=== PATIENT | female | born 1990 | race Hispanic/Latino ===

== ENCOUNTER 2024-04-23 11:41 | Emergency (ER) | payer OTHER ==
[2024-04-23] MEDS ORDERED: NA CHLORIDE 0.9% 1,000 ML ONE (12:42)
[2024-04-23 13:03] LABS: Absolute Basophils 0.1 K/uL (0-0.5); Absolute Eosinophils 0.2 K/uL (0-0.5); Absolute Lymphocytes (CBC) 2.3 K/uL (0.7-4.9); Absolute Monocytes 0.3 K/uL (0.1-1.3); Absolute Neutrophil 5.2 K/uL (1.8-8.0); Basophils % 0.9 % (0-1.3); Eosinophils % 2.9 % (0-4.4); Hematocrit 41.5 % (36.0-45.0); Hemoglobin 13.4 g/dL (12.0-15.0); Lymphocytes % 28.1 % (15.3-44.8); MCH 28.2 pg (27.0-35.0); MCHC 32.4 g/dL (32.0-36.0); MCV 87.3 fL (80-100); MPV 7.6 fL (7.6-11.3); Monocytes % 4.1 % (3.3-12.3); Platelets 314 thou/uL (152-406); RBC Red Blood Cell Count 4.75 M/uL (3.86-4.86); Red Cell Distribution Width 12.9 % (12.1-15.2); Specific Gravity 1.013 (1.005-1.030)
[2024-04-23 13:09] LABS: Specific Gravity 1.013 (1.005-1.030); Urine Bacteria <20 /HPF (<20); Urine Bilirubin NEGATIVE (Negative); Urine Blood Negative (Negative); Urine Clarity Extremely Turbid (Clear); Urine Color Light-Yellow (Yellow); Urine Culture Reflex Order NOT NEEDED; Urine Glucose NEGATIVE (Negative); Urine Ketones NEGATIVE (Negative); Urine Microscopic Reflex YN ORDER UMIC; Urine Mucus Slight /HPF (None Seen); Urine Nitrite NEGATIVE (Negative); Urine Protein NEGATIVE (Negative); Urine RBC <5 /HPF (None Seen); Urine Urobilinogen Normal (Normal); Urine pH 6.5 (5.0-7.0)
[2024-04-23 13:21] LABS: Albumin 3.8 g/dL (3.4-5.0); Albumin/Globulin Ratio 0.9 (1.1-1.8); Anion Gap 6.8 mEq/L (5.0-15.0); Bilirubin Total 1.2 mg/dL (0.2-1.0); Globulin 4.3 g/dL (2.3-3.5); Potassium 3.8 mEq/L (3.5-5.1); Protein, Total 8.1 g/dL (6.4-8.2)
[2024-04-23] MEDS ORDERED: KETOROLAC 30 MG/ML INJ ONE (14:43)
[2024-04-23] MEDS ORDERED: ONDANSETRON 4 MG/2 ML VIAL ONE (14:43)
[2024-04-23] MEDS ORDERED: DIAZEPAM 5 MG TABLET ONE (14:44)
--- NOTE | 2024-04-23 14:59 | RAD REPORT ---
EXAMINATION: CT LUMBAR SPINE WITHOUT CONTRAST CLINICAL INDICATION: Back pain TECHNIQUE: Axial CT images were obtained through the lumbar spine in soft tissue and bone windows wit hout intravenous contrast. Coronal and Sagittal reformatted images were created from the data set. One or more of the following dose reduction techniques were used: Automated exposure control, adjustm ent of the mA and/ or kV according to patient size, and/or iterative reconstruction. Unless otherwise specified, incidental findings do not require dedicated imaging follow-up. COMPARISON: No prior exam. FINDINGS: For purposes of this dictation, it is assumed that there are 5 non rib-bearing lumbar type vertebrae, and the most caudal fully segmented lumbar vertebra is labeled L5. No fracture seen No dislocation. No significant abnormality L1-L4. Small to moderate broad base disc herniation L5-S1 IMPRESSION: No fracture seen Small to moderate broad base disc herniation suspected at L5-S1. Nonemergent MRI recommended for furt her evaluation.
[2024-04-23] MEDS ORDERED: CIPROFLOXACIN HCL 500 MG TAB ONE (15:00)
[2024-04-23] MEDS ORDERED: CEFTRIAXONE 1000 MG/VIAL ONE (15:00)
--- NOTE | 2024-04-23 15:02 | ER ---
Nurse's Notes [facility] Name: Kristan Eckert Age: 33 yrs Sex: Female : 1990 Arrival Date: 04/23/2024 Time: 11:41 Bed 25 Private MD: Diagnosis: Low back pain;Strain of muscle, fascia and tendon of abdomen, lower back and pelvis;UTI/ Urinary tract infection, site not specified;Other intervertebral disc disorders, lumbar [id number]-[id number] SMALL TO MODERATED DISC HERNIATION Presentation: 04/23 12:07 Chief complaint: Patient states: back spasms on left flank area, thinks she lifted iw something heavy. Coronavirus screen: At this time, the client does not indicate any symptoms associated with coronavirus-19. Ebola Screen: No symptoms or risks identified at this time. Initial Sepsis Screen: Does the patient meet any 2 criteria? No. Patient's initial sepsis screen is negative. Does the patient have a suspected source of infection? No. Patient's initial sepsis screen is negative. Risk Assessment: Do you want to hurt yourself or someone else? Patient reports no desire to harm self or others. Onset of symptoms was April 23, 2024. 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 - Infectious Disease History:: Denies. - Social history:: Smoking status: Patient denies any tobacco usage or history of. - Family history:: not pertinent. Screenin:15 [facility] ED Fall Risk Assessment (Adult) History of falling in the last 3 months, me1 including since admission No falls in past 3 months (0 pts) Confusion or Disorientation No (0 pts) Intoxicated or Sedated No (0 pts) Impaired Gait No (0 pts) Mobility Assist Device Used No (0 pt) Altered Elimination No (0 pt) Score/Fall Risk Level 0 - 2 = Low Risk Maintained a safe environment, Provided non-skid footwear, Hourly rounding (assess needs \T\ fall precautionary measures) done. Abuse screen: Denies threats or abuse. Nutritional screening: No deficits noted. Tuberculosis screening: No symptoms or risk factors identified. Assessment: 12:15 General: Appears uncomfortable, well groomed, well developed, well nourished, Behavior [facility] is calm, cooperative, appropriate for age, Reports c/o left flank pain/spasms, patient thinks she lifted something too heavy. Pain: Complains of pain in left flank Pain does not radiate. Pain currently is 7 out of 10 on a pain scale. Quality of pain is described as crampy, dull, Pain began gradually, Is continuous. Neuro: 15:38 Reassessment: Discharge delayed waiting on CD of CT scan as patient is [place] [facility] [place] and will need it for her follow ups at home. Vital Signs: 12:07 BP 131 / 99; Pulse 88; Resp 16; Temp 97; Pulse Ox 100% on R/A; Weight 72.57 kg; Height iw 5 ft. 2 in. ; Pain 8/10; 13:00 BP 116 / 86; Pulse 95; Resp 16; Pulse Ox 100% ; me1 14:00 BP 118 / 76; Pulse 88; Resp 15; Pulse Ox 100% ; me1 15:00 BP 114 / 69; Pulse 81; Resp 17; Temp 98.6; Pulse Ox 99% ; me1 12:07 Body Mass Index 29.26 (72.57 kg, 157.48 cm) iw 12:07 Pain Scale: Adult iw ED Course: 11:46 Patient arrived in ED. mg5 11:54 Bao Camilo MD is Attending Physician. vadim 12:08 Triage completed. iw 12:09 Arm band placed on. iw 12:15 Patient has correct armband on for positive identification. Bed in low position. Call [facility] light in reach. Side rails up X2. Provided Education on: POC. Verbalized understanding.. Client placed on continuous cardiac and pulse oximetry monitoring. NIBP monitoring applied. Pulse ox on. NIBP on. 12:15 No provider procedures requiring assistance completed. [facility] 12:15 Initial lab(s) drawn, by ED staff, sent to lab. Inserted saline lock: 20 gauge in right [facility] antecubital area, using aseptic technique. Blood collected. Flushed with 10 mL NS. 12:41 Kristan Scales, JOHNATHAN is Primary Nurse. me1 14:19 CT Lumbar Spine Wo Con In Process Unspecified. EDMS 15:01 Juan La MD is Referral Physician. [facility] 15:03 Nahum Wesley MD is Referral Physician. vadim 15:28 IV discontinued, intact, bleeding controlled, No redness/swelling at site. Pressure me1 dressing applied. Administered Medications: 12:46 Drug: NS 0.9% IV 1000 ml IV at 1000 ml once; to be given as a bolus over 60 minutes me1 Route: IV; Rate: 1000 ml; Site: left antecubital; 15:38 Follow up: Response: No adverse reaction; IV Status: Completed infusion; IV Intake: me1 1000ml 14:49 Drug: Diazepam PO 10 mg PO once Route: PO; me1 14:58 Follow up: Response: No adverse reaction; Pain is decreased me1 14:50 Drug: Ketorolac IVP 30 mg IVP once Route: IVP; Site: right antecubital; me1 14:58 Follow up: Response: No adverse reaction; Pain is decreased me1 14:50 Drug: Ondansetron IVP 4 mg IVP once; over 2 minutes Route: IVP; Site: right antecubital;me1 14:58 Follow up: Response: No adverse reaction; Nausea is decreased me1 15:07 Drug: Rocephin - Rocephin (cefTRIAXone) IVPB 1 grams IVPB once over 30 mins; (mix in 50 me1 mL NS) Route: IVPB; Infused Over: 30 mins; Site: right antecubital; 15:07 Follow up: Response: No adverse reaction; IV Status: Completed infusion me1 15:07 Drug: Ciprofloxacin PO 500 mg PO once Route: PO; me1 15:37 Follow up: Response: No adverse reaction me1 Medication: 15:28 VIS not applicable for this client. me1 Intake: 15:38 IV: 1000ml; Total: 1000ml. me1 Outcome: 15:02 Discharge ordered by . [facility] 15:28 Discharged to home ambulatory, with significant other, me1 15:28 Condition: stable 15:28 Discharge instructions given to patient, Instructed on discharge instructions, follow up and referral plans. medication usage, Demonstrated understanding of instructions, follow-up care, medications, Prescriptions given X x5 15:38 Patient left the ED. me1 Signatures: Dispatcher [employer] Bao Herzog MD MD cha Williams, Irene RN JOHNATHAN iw Kristan Scales RN RN me1 Sharlene Petersen mg5 Corrections: (The following items were deleted from the chart) 12:09 12:08 PSHx: None; james ramirez
--- NOTE | 2024-04-23 15:02 | EDPHYS ---
Physician Documentation [facility] Name: Kristan Eckert Age: 33 yrs Sex: Female : 1990 Arrival Date: 04/23/2024 Time: 11:41 Bed 25 Private MD: AMMON Physician Bao Camilo HPI: 04/23 14:28 This 33 yrs old Female presents to ER via Ambulatory with complaints of Back vadim Pain. 14:28 The patient presents with pain that is acute, with no known mechanism of injury. The vadim symptoms are located in the low back, lumbar spine. Onset: The symptoms/episode began/occurred just prior to arrival, today. The pain radiates to the left low back, left mid back, right mid back and right low back. Associated signs and symptoms: The patient has no apparent associated signs or symptoms. The problem was sustained when lifting from twisting. Modifying factors: The patient symptoms are alleviated by remaining still, the patient symptoms are aggravated by any movement. Severity of symptoms: At their worst the symptoms were moderate, in the emergency department the symptoms are unchanged. The patient has not experienced similar symptoms in the past. 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 - Infectious Disease History:: Denies. - Social history:: Smoking status: Patient denies any tobacco usage or history of. - Family history:: not pertinent. ROS: 14:28 Constitutional: Negative for fever, chills, and weight loss, Eyes: Negative for injury, vadim pain, redness, and discharge, ENT: Negative for injury, pain, and discharge, Neck: Negative for injury, pain, and swelling, Cardiovascular: Negative for chest pain, palpitations, and edema, Respiratory: Negative for shortness of breath, cough, wheezing, and pleuritic chest pain, Abdomen/GI: Negative for abdominal pain, nausea, vomiting, diarrhea, and constipation, : Negative for injury, bleeding, discharge, and swelling, MS/Extremity: Negative for injury and deformity, Skin: Negative for injury, rash, and discoloration, Neuro: Negative for headache, weakness, numbness, tingling, and seizure, Psych: Negative for depression, anxiety, suicide ideation, homicidal ideation, and hallucinations, Allergy/Immunology: Negative for hives, rash, and allergies, Endocrine: Negative for neck swelling, polydipsia, polyuria, polyphagia, and marked weight changes, Hematologic/Lymphatic: Negative for swollen nodes, abnormal bleeding, and unusual bruising, 14:28 Back: Positive for pain at rest, pain with movement, flank pain, bilaterally, Exam: 14:28 Constitutional: This is a well developed, well nourished patient who is awake, alert, vadim and in no acute distress. Head/Face: Normocephalic, atraumatic. Eyes: Pupils equal round and reactive to light, extra-ocular motions intact. Lids and lashes normal. Conjunctiva and sclera are non-icteric and not injected. Cornea within normal limits. Periorbital areas with no swelling, redness, or edema. ENT: Nares patent. No nasal discharge, no septal abnormalities noted. Tympanic membranes are normal and external auditory canals are clear. Oropharynx with no redness, swelling, or masses, exudates, or evidence of obstruction, uvula midline. Mucous membranes moist. Neck: Trachea midline, no thyromegaly or masses palpated, and no cervical lymphadenopathy. Supple, full range of motion without nuchal rigidity, or vertebral point tenderness. No Meningismus. Chest/axilla: Normal chest wall appearance and motion. Nontender with no deformity. No lesions are appreciated. Cardiovascular: Regular rate and rhythm with a normal S1 and S2. No gallops, murmurs, or rubs. Normal PMI, no JVD. No pulse deficits. Respiratory: Lungs have equal breath sounds bilaterally, clear to auscultation and percussion. No rales, rhonchi or wheezes noted. No increased work of breathing, no retractions or nasal flaring. Abdomen/GI: Soft, non-tender, with normal bowel sounds. No distension or tympany. No guarding or rebound. No evidence of tenderness throughout. Skin: Warm, dry with normal turgor. Normal color with no rashes, no lesions, and no evidence of cellulitis. MS/ Extremity: Pulses equal, no cyanosis. Neurovascular intact. Full, normal range of motion., bilateral aka Neuro: Awake and alert, GCS 15, oriented to person, place, time, and situation. Cranial nerves II-XII grossly intact. Motor strength 5/5 in all extremities. Sensory grossly intact. Cerebellar exam normal. Normal gait. Psych: Awake, alert, with orientation to person, place and time. Behavior, mood, and affect are within normal limits. 14:28 Back: pain, that is moderate, of the left low back, left mid back, right mid back and right low back, ROM is painful, with rotation to the right, with rotation to the left, with flexion, with extension, normal spinal alignment noted, CVA tenderness, is absent, muscle spasm, is appreciated in the left low back, left mid back, right mid back and right low back, Vital Signs: 12:07 BP 131 / 99; Pulse 88; Resp 16; Temp 97; Pulse Ox 100% on R/A; Weight 72.57 kg; Height iw 5 ft. 2 in. ; Pain 8/10; 13:00 BP 116 / 86; Pulse 95; Resp 16; Pulse Ox 100% ; me1 14:00 BP 118 / 76; Pulse 88; Resp 15; Pulse Ox 100% ; me1 15:00 BP 114 / 69; Pulse 81; Resp 17; Temp 98.6; Pulse Ox 99% ; me1 12:07 Body Mass Index 29.26 (72.57 kg, 157.48 cm) iw 12:07 Pain Scale: Adult iw MDM: 11:54 Medical Screening Exam initiated vadim 14:31 Differential diagnosis: chronic back pain, Fatigue Fracture Ligament Injury vadim Osteoarthritis Osteoporosis Pyelonephritis Renal Infarction ruptured disc, spinal injury, sprain, Ureterolithiasis vertebral fracture. Data reviewed: vital signs, nurses notes, lab test result(s), radiologic studies, CT scan. Consideration of Admission/Observation Escalation of care including admission/observation considered. Independent interpretation of the following test(s) in the Emergency Department CT Scan: My interpretation is CT LUMBAR. 04/23 11:54 Order name: Urinalysis w/ reflexes; Complete Time: 14:24 [facility] 04/23 11:54 Order name: PREGU; Complete Time: 14:24 [facility] 04/23 12:14 Order name: CBC with Diff; Complete Time: 14:24 [facility] 04/23 12:14 Order name: Comprehensive Metabolic Panel; Complete Time: 14:24 [facility] 04/23 12:14 Order name: CT Lumbar Spine Wo Con vadim Administered Medications: 12:46 Drug: NS 0.9% IV 1000 ml IV at 1000 ml once; to be given as a bolus over 60 minutes me1 Route: IV; Rate: 1000 ml; Site: left antecubital; 15:38 Follow up: Response: No adverse reaction; IV Status: Completed infusion; IV Intake: me1 1000ml 14:49 Drug: Diazepam PO 10 mg PO once Route: PO; me1 14:58 Follow up: Response: No adverse reaction; Pain is decreased me1 14:50 Drug: Ketorolac IVP 30 mg IVP once Route: IVP; Site: right antecubital; me1 14:58 Follow up: Response: No adverse reaction; Pain is decreased me1 14:50 Drug: Ondansetron IVP 4 mg IVP once; over 2 minutes Route: IVP; Site: right antecubital;me1 14:58 Follow up: Response: No adverse reaction; Nausea is decreased me1 15:07 Drug: Rocephin - Rocephin (cefTRIAXone) IVPB 1 grams IVPB once over 30 mins; (mix in 50 me1 mL NS) Route: IVPB; Infused Over: 30 mins; Site: right antecubital; 15:07 Follow up: Response: No adverse reaction; IV Status: Completed infusion me1 15:07 Drug: Ciprofloxacin PO 500 mg PO once Route: PO; me1 15:37 Follow up: Response: No adverse reaction me1 Disposition Summary: 04/23/24 15:02 Discharge Ordered Notes: Location: Home vadim Problem: new vadim Symptoms: have improved vadim Condition: Stable vadim Diagnosis - Low back pain vadim - Strain of muscle, fascia and tendon of abdomen, lower back and pelvis vadim - UTI/ Urinary tract infection, site not specified vadim - Other intervertebral disc disorders, lumbar region - L5-S1 SMALL TO MODERATED DISC vadim HERNIATION Followup: vadim - With: Private Physician - When: 2 - 3 days - Reason: Recheck today's complaints, Continuance of care, Re-evaluation by your physician Followup: vadim - With: Juan La MD - When: 2 - 3 days - Reason: Recheck today's complaints, Re-evaluation by your physician Followup: vadim - With: Nahum Wesley MD - When: 2 - 3 days - Reason: Recheck today's complaints, Re-evaluation by your physician Discharge Instructions: - Discharge Summary Sheet vadim - Acute Back Pain, Adult vadim - Herniated Disk vadim - Musculoskeletal Pain vadim - Urinary Tract Infection, Adult vadim - Back Injury Prevention, Phol-lu-Yraq vadim - Urinary Tract Infection, Adult, Klfa-nm-Azox vadim - Back Exercises, Jsux-mr-Jpud vadim - Radicular Pain [facility] Forms: - Medication Reconciliation Form [facility] - Antibiotic Education vadim - Prescription Opioid Use vadim - Patient Portal Instructions [facility] - Leadership Thank You Letter [facility] Prescriptions: - acetaminophen-codeine 300-30 mg Oral tablet - take 2 tablet ORAL route every 6 hours as needed for pain; 20 tablet; Refills: vadim 0, Product Selection Permitted - dexamethasone 2 mg Oral tablet - take 1 tablet ORAL route once daily; 5 tablet; Refills: 0, Product Selection vadim Permitted - Cipro 250 mg Oral tablet - take 1 tablet ORAL route every 12 hours; 14 tablet; Refills: 0, Product [facility] Selection Permitted - Ibuprofen 600 mg Oral Tablet - take 1 tablet ORAL route every 6 hours As needed take with food; 30 tablet; vadim Refills: 0, Product Selection Permitted - methocarbamol 750 mg Oral tablet - take 1 tablet ORAL route 4 times per day; 36 tablet; Refills: 0, Product [facility] Selection Permitted Signatures: Dispatcher [employer] Bao Herzog MD MD cha Williams, Irene, RN JOHNATHAN Kristan Scales RN RN me1 Corrections: (The following items were deleted from the chart) 12:09 12:08 PSHx: None; [facility]
[2024-04-23 18:34] VITALS: BP 114/69; TEMP 98.6; O2SAT 99
--- OUTSIDE RECORDS SUMMARY | 2024-04-26 08:01 | XMS REPORT | Continuity of Care Document ---
Author Name Unknown Address [address] [facility] [address] [place] [id number] [facility] thconnect Address [address] [facility] [address] [place] [address] Care Team Providers Care Doula Name Role Phone Unavailable Unavailable Unavailable Problems Condition Name Condition Details Condition Category Status Onset Date Resolution Date Last Treatment Date Treating Clinician Comments Source COVID-19 Covid-19 Problem Active 01-12 00:00: 00 [facility] Bronchitis Bronchitis Problem Active 01-12 00:00: 00 [facility] Hyperthyro idism Hyperthyro idism Problem Active 2020-05 00:00: 00 [facility] Vitamin D deficiency Vitamin D Deficiency Problem Active 2020-05 2 00:00: 00 [facility] Sleep apnea Sleep Apnea Problem Active 2020-05 00:00: 00 [facility] Polycystic ovary syndrome Polycystic Ovary Syndrome Problem Active 2020-05 00:00: 00 [facility] Finding of pattern of menstrual cycle Finding of Pattern of Menstrual Cycle Problem Active 2019-05 00:00: 00 [facility] Clinical finding Clinical Finding Problem Active 2019-05 00:00: 00 [facility] Excessive menstruati on with irregular cycle Excessive Menstruati on with Irregular Cycle Problem Active 2019-05 00:00: 00 [facility] Polymenorr hea Polymenorr hea Problem Active 2019-05 00:00: 00 [facility] Menometror rhagia Menometror rhagia Problem Active 2019-05 00:00: 00 [facility] Irregular intermenst rual bleeding Irregular Intermenst rual Bleeding Problem Active 2019-05 00:00: 00 [facility] Finding of regularity of menstrual cycle Finding of Regularity of Menstrual Cycle Problem Active 2019-05 00:00: 00 [facility] Medications Ordered Medication Name Filled Medication Name Start Date Stop Date Current Medication? Ordering Clinician Indication Dosage Frequency Signature (SIG) Comments Components Source cefdinir 300 mg capsule Take 1 capsule every 12 hours by oral route for 10 days. cefdinir 300 mg capsule Take 1 capsule every 12 hours by oral route for 10 days. No 1capsul e(s) Q12H cefdinir 300 mg capsule Take 1 capsule every 12 hours by oral route for 10 days. [facility] Medrol (Moshe) 4 mg tablets in a dose pack Take 1 dose pk every day by oral route as directed. Medrol (Moshe) 4 mg tablets in a dose pack Take 1 dose pk every day by oral route as directed. No 1dose pk(s) Q1D Medrol (Moshe) 4 mg tablets in a dose pack Take 1 dose pk every day by oral route as directed. [facility] albuterol sulfate HFA 90 mcg/actuati on aerosol inhaler Inhale 2 puffs every 4 hours by inhalation route as needed. albuterol sulfate HFA 90 mcg/actuati on aerosol inhaler Inhale 2 puffs every 4 hours by inhalation route as needed. No 2puff(s ) Q4H albuterol sulfate HFA 90 mcg/actuat ion aerosol inhaler Inhale 2 puffs every 4 hours by inhalation route as needed. [facility] bromphenira mine-pseudo ephedrine-D M 2 mg-30 mg-10 mg/5 mL oral syrup TAKE 10 ML(S) BY MOUTH EVERY 8 HOURS NEEDED FOR COUGH FOR 7 DAYS. bromphenira mine-pseudo ephedrine-D M 2 mg-30 mg-10 mg/5 mL oral syrup TAKE 10 ML(S) BY MOUTH EVERY 8 HOURS NEEDED FOR COUGH FOR 7 DAYS. No bromphenir amine-pseu doephedrin e-DM 2 mg-30 mg-10 mg/5 mL oral syrup TAKE 10 ML(S) BY MOUTH EVERY 8 HOURS NEEDED FOR COUGH FOR 7 DAYS. [facility] Vital Signs Vital Name Observation Time Observation Value Comments S ource Height 2024-01-13 00:00:00 62 [in_i] [facility] BP Systolic 2024-01-13 00:00:00 120 mm[Hg] [facility] Body Weight 2024-01-13 00:00:00 2374 [oz_av] [facility] BMI (Body Mass Index) 2024-01-13 00:00:00 27.1 kg/m2 [facility] BP Diastolic 2024-01-13 00:00:00 80 mm[Hg] [facility] Encounters Start Date/Time End Date/Time Encounter Type Admission Type Attending [facility] Facility Care Department Encounter ID Source 2024-01-13 00:00:00 2024-01-13 00:00:00 Kimberly Xie, HIGH [employer]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 [facility] - [id number] plummer [id number] [facility]
== END 2024-04-23 15:38 | disposition home or self-care (01) ==
LOC: ER 11:41
DX: S39.011A Strain of muscle, fascia and tendon of abdomen, initial encounter (principal); S39.012A Strain of muscle, fascia and tendon of lower back, initial encounter; S39.013A Strain of muscle, fascia and tendon of pelvis, initial encounter; N39.0 Urinary tract infection, site not specified; M54.50 Low back pain, unspecified; M51.26 Other intervertebral disc displacement, lumbar region
CPT/HCPCS: 96361; 85025; 81001; 36415; 81025; 80053; 72131; 96375; 96374; 99284; J2405; J7030; J0696